=== PATIENT | female | born 1935 | race Caucasian/White ===

== ENCOUNTER 2016-09-27 20:30 | Inpatient (IN) | payer MEDICARE, OTHER ==
[~2016-09-27] VITALS: Ht 170.2 cm; Wt 71.2 kg
[2016-09-27] MEDS ORDERED: SODIUM CHLORIDE 0.9% 1,000 ML ONE (22:26)
[2016-09-27] MEDS ORDERED: CEFTRIAXONE 1 GM VIAL ONE (22:26)
[2016-09-27] MEDS ORDERED: SODIUM CHLORIDE 0.9% 100 ML IV ONE (22:26)
[2016-09-27] MEDS ORDERED: DUONEB INH ONE ×2 (22:48)
[2016-09-27] MEDS ORDERED: ALU/MAG/SIM 30 ML UDC PO PRN (23:00)
[2016-09-27] MEDS: DUONEB INH SCH (23:00)
[2016-09-27] MEDS ORDERED: SALINE FLUSH 10 ML FLUSH PRN (23:00)
[2016-09-27] MEDS ORDERED: BISACODYL EC 5 MG TAB PO PRN (23:00)
[2016-09-27] MEDS ORDERED: BISACODYL 10 MG SUPP RECTAL PRN (23:00)
[2016-09-27] MEDS ORDERED: SODIUM CHLORIDE 0.9% 250 ML IV ONE (23:25)
[2016-09-27] MEDS ORDERED: AZITHROMYCIN 500 MG VIAL IV ONE (23:25)
[2016-09-28] VITALS (7 sets, daily range): BP systolic 114–132; RESP 18–20; TEMP 97.6–98.5; Ht 170.2 cm; Wt 71.2 kg
[2016-09-28] MEDS: NEB-ALBUTEROL 2.5 MG/3 ML INH SCH ×6 (02:24→23:00)
[2016-09-28] MEDS: DUONEB INH SCH ×6 (02:24→23:03)
[2016-09-28] MEDS: SODIUM CHLORIDE 0.9% FLUSH BAG 500 ML IV SCH (06:24)
[2016-09-28] MEDS: MDI-SPIRIVA 5 DOSES INH SCH (07:10)
[2016-09-28] MEDS ORDERED: AZITHROMYCIN 250 MG TAB PO ONE (08:00)
[2016-09-28] MEDS ORDERED: CEFTRIAXONE 1 GM in SODIUM CHLORIDE 0.9% 50 ML IV SCH (09:00)
[2016-09-28] MEDS: FAMOTIDINE 20 MG TAB PO SCH ×2 (09:18→21:25)
[2016-09-28] MEDS: ASPIRIN EC 81 MG TAB PO SCH (09:18)
[2016-09-28] MEDS: ENOXAPARIN 30 MG/0.3 ML SYR SUBQ SCH (09:18)
[2016-09-28] MEDS: OMEGA 3 FATTY ACIDS 1 GM CAP PO SCH (09:18)
[2016-09-28] MEDS: SALINE FLUSH 10 ML FLUSH SCH ×2 (09:19→21:25)
[2016-09-28] MEDS: METHYLPRED SOD SUCC 40 MG VIAL IV SCH ×2 (17:11→21:27)
[2016-09-28] MEDS: ACETAMINOPHEN 325 MG TAB PO PRN ×2 (17:12→21:26)
[2016-09-28] MEDS: ROSUVASTATIN 20 MG TAB PO SCH (21:25)
[2016-09-29 00:02] VITALS: BP_SYST 126; RESP 18; TEMP 97.7
[2016-09-29] MEDS: NEB-ALBUTEROL 2.5 MG/3 ML INH SCH ×2 (02:26→07:00)
[2016-09-29] MEDS: DUONEB INH SCH ×6 (02:28→22:59)
[2016-09-29] MEDS: MAG HYDROX 30 ML UDC PO PRN ×2 (03:01→23:38)
[2016-09-29] MEDS: SODIUM CHLORIDE 0.9% FLUSH BAG 500 ML IV SCH (03:02)
[2016-09-29 03:19] VITALS: BP_SYST 114; RESP 18; TEMP 98
[2016-09-29 07:00] VITALS: BP_SYST 108; RESP 20; TEMP 97.7
[2016-09-29] MEDS: MDI-SPIRIVA 5 DOSES INH SCH (07:15)
[2016-09-29] MEDS ORDERED: NEB-ALBUTEROL 2.5 MG/3 ML INH PRN (08:10)
[2016-09-29] MEDS: METHYLPRED SOD SUCC 40 MG VIAL IV SCH (08:48)
[2016-09-29] MEDS: SALINE FLUSH 10 ML FLUSH SCH ×2 (08:48→19:51)
[2016-09-29] MEDS: FAMOTIDINE 20 MG TAB PO SCH ×2 (08:48→19:51)
[2016-09-29] MEDS: OMEGA 3 FATTY ACIDS 1 GM CAP PO SCH (08:49)
[2016-09-29] MEDS: ENOXAPARIN 30 MG/0.3 ML SYR SUBQ SCH (08:49)
[2016-09-29] MEDS: ASPIRIN EC 81 MG TAB PO SCH (08:49)
[2016-09-29 11:20] VITALS: BP_SYST 122; RESP 18; TEMP 97.9
[2016-09-29] MEDS: NEB-BUDESONIDE 0.5 MG INH SCH ×2 (15:12→19:10)
[2016-09-29] MEDS: NEB-BROVANA 15 MCG/2 ML INH SCH ×2 (15:12→19:10)
[2016-09-29 15:35] VITALS: BP_SYST 128; RESP 18; TEMP 97.8
[2016-09-29] MEDS ORDERED: METHYLPRED SOD SUCC 40 MG VIAL IV SCH (16:00)
[2016-09-29] MEDS: ACETAMINOPHEN 325 MG TAB PO PRN ×2 (18:36→23:38)
[2016-09-29 19:30] VITALS: BP_SYST 117; RESP 16; TEMP 98
[2016-09-29] MEDS: ROSUVASTATIN 20 MG TAB PO SCH (19:51)
[2016-09-30] VITALS (7 sets, daily range): BP systolic 115–131; RESP 16–20; TEMP 97.3–98.9
[2016-09-30] MEDS: SODIUM CHLORIDE 0.9% FLUSH BAG 500 ML IV SCH (01:58)
[2016-09-30] MEDS: DUONEB INH SCH ×5 (02:59→23:38)
[2016-09-30] MEDS: NEB-BUDESONIDE 0.5 MG INH SCH (07:00)
[2016-09-30] MEDS: SALINE FLUSH 10 ML FLUSH SCH ×2 (08:13→19:34)
[2016-09-30] MEDS: ASPIRIN EC 81 MG TAB PO SCH (08:13)
[2016-09-30] MEDS: AZITHROMYCIN 250 MG TAB PO SCH (08:13)
[2016-09-30] MEDS: FAMOTIDINE 20 MG TAB PO SCH ×2 (08:14→19:32)
[2016-09-30] MEDS: OMEGA 3 FATTY ACIDS 1 GM CAP PO SCH (08:14)
[2016-09-30] MEDS: PREDNISONE 20 MG TAB PO SCH (08:15)
[2016-09-30] MEDS: ENOXAPARIN 30 MG/0.3 ML SYR SUBQ SCH (08:16)
[2016-09-30] MEDS: NEB-BROVANA 15 MCG/2 ML INH SCH ×2 (08:23→19:49)
[2016-09-30] MEDS: MDI-SPIRIVA 5 DOSES INH SCH (08:23)
[2016-09-30] MEDS: ACETAMINOPHEN 325 MG TAB PO PRN ×2 (10:58→23:12)
[2016-09-30] MEDS: ANASTROZOLE 1 MG TAB PO SCH (14:25)
[2016-09-30] MEDS: ROSUVASTATIN 20 MG TAB PO SCH (19:32)
[2016-09-30] MEDS: MAG HYDROX 30 ML UDC PO PRN (23:12)
[2016-10-01 03:11] VITALS: BP_SYST 126; RESP 18; TEMP 97.8
[2016-10-01] MEDS: SODIUM CHLORIDE 0.9% FLUSH BAG 500 ML IV SCH (04:57)
[2016-10-01] MEDS: MDI-SPIRIVA 5 DOSES INH SCH (07:00)
[2016-10-01 07:41] VITALS: BP_SYST 125; RESP 18; TEMP 97.7
[2016-10-01] MEDS: NEB-BROVANA 15 MCG/2 ML INH SCH (07:50)
[2016-10-01] MEDS: DUONEB INH SCH (07:50)
[2016-10-01] MEDS: FAMOTIDINE 20 MG TAB PO SCH (08:22)
[2016-10-01] MEDS: PREDNISONE 20 MG TAB PO SCH (08:23)
[2016-10-01] MEDS: ASPIRIN EC 81 MG TAB PO SCH (08:23)
[2016-10-01] MEDS: ENOXAPARIN 30 MG/0.3 ML SYR SUBQ SCH ×2 (08:23→08:31)
[2016-10-01] MEDS: ANASTROZOLE 1 MG TAB PO SCH (08:23)
[2016-10-01] MEDS: OMEGA 3 FATTY ACIDS 1 GM CAP PO SCH (08:23)
[2016-10-01] MEDS: SALINE FLUSH 10 ML FLUSH SCH (08:24)
[2016-10-01] MEDS: AZITHROMYCIN 250 MG TAB PO SCH (08:28)
[2016-10-01 11:19] VITALS: BP_SYST 125; RESP 18; TEMP 97.7
[2016-10-01 11:25] VITALS: BP_SYST 138; RESP 18; TEMP 97.5
== END 2016-10-01 12:25 | disposition home or self-care (01) | DRG 189 ==
LOC: ENRESERVTM → ENRESERVDT → ER 20:30 → EMR 22:58 → 4THW 09-28 00:21
PROVIDERS: ADMIT Internal Medicine; ATTEND Internal Medicine
DX: J96.21 Acute and chronic respiratory failure with hypoxia (principal); J44.1 Chronic obstructive pulmonary disease with (acute) exacerbation; Z99.81 Dependence on supplemental oxygen; I12.9 Hypertensive chronic kidney disease with stage 1 through stage 4 chronic kidney disease, or unspecified chronic kidney disease; N18.3 Chronic kidney disease, stage 3 (moderate); Z72.0 Tobacco use; N28.1 Cyst of kidney, acquired; E78.4 Other hyperlipidemia; F41.9 Anxiety disorder, unspecified; G89.29 Other chronic pain; M54.9 Dorsalgia, unspecified; Z85.3 Personal history of malignant neoplasm of breast; Z90.10 Acquired absence of unspecified breast and nipple; M19.90 Unspecified osteoarthritis, unspecified site; Z91.81 History of falling
CPT/HCPCS: 36415; 71010; 71250; 76770; 80048; 80053; 82553; 83605; 83735; 83880; 84300; 84484; 85025; 87040; 93005; 93306; 94640; 96361; 96365; 96375; 99223; 99232; 99239